=== PATIENT | female | born 1985 | race Caucasian/White ===

== ENCOUNTER 2024-06-05 05:53 | Day surgery (SDC) | payer OTHER ==
[2024-06-05] MEDS ORDERED: MEPERIDINE HCL/PF 50 MG/ML VIAL IV ONE (08:15)
[2024-06-05] MEDS ORDERED: DIPHENHYDRAMINE HCL 50 MG/ML VIAL 1ML IV ONE (08:15)
[2024-06-05] MEDS ORDERED: MIDAZOLAM HCL/PF 5 MG/ML VIAL IV ONE (08:15)
== END 2024-06-05 10:35 | disposition home or self-care (01) ==
LOC: AMB-ENDOS 05:53 → ADM 05:53 → AMB-ENDOS 10:35 → CIR.AMB 13:00
PROVIDERS: ATTEND Surgery
DX: K29.50 Unspecified chronic gastritis without bleeding (principal); B96.81 Helicobacter pylori [H. pylori] as the cause of diseases classified elsewhere; K44.9 Diaphragmatic hernia without obstruction or gangrene; R10.13 Epigastric pain; E66.09 Other obesity due to excess calories; K21.9 Gastro-esophageal reflux disease without esophagitis